=== PATIENT | female | born 1960 | race Two or more races ===

== ENCOUNTER 2019-07-16 13:51 | Outpatient (CLI) | payer OTHER | END 2019-07-16 14:35 | disposition home or self-care (01) | LOC: NUCLEAR 13:51 | DX: C73 Malignant neoplasm of thyroid gland (principal); E89.0 Postprocedural hypothyroidism | CPT/HCPCS: 79005; A9517 ==

== ENCOUNTER 2019-07-20 15:22 | Outpatient (CLI) | payer OTHER | END 2019-07-20 15:29 | disposition home or self-care (01) | LOC: NUCLEAR 15:22 | DX: C73 Malignant neoplasm of thyroid gland (principal); E89.0 Postprocedural hypothyroidism ==